=== PATIENT | female | born 2000 | race Caucasian/White ===

== ENCOUNTER 2021-08-13 08:06 | Outpatient (CLI) | payer OTHER, SELFPAY ==
--- NOTE | 2021-08-16 22:06 | WPDHOLTEREM ---
Holter/Event Monitor Holter/Event Monitor Date of procedure: 08/16/21 Holter/Event Procedure: 48 Hr Holter Monitor Diagnosis: Tachycardia Indications: Tachycardia Image/Tracing Quality: Good Finding: The patient was monitored for 48 hours. The underlying rhythm was sinus with a minimum heart rate of 51 beats per minute, average heart rate of 85 beats per minute and a maximum heart rate of 145 beats per minute. There were no PVCs. Twenty APCs were seen. There was no SVT, atrial fibrillation, ventricular tachycardia, heart block or pauses. The patient complained of chest pain at 3:39 p.m. on day 1 at which time she was in sinus tachycardia rate 115 beats per minute. No other symptoms were recorded. . Conclusion: 1. Unremarkable Holter monitor. Rare PACs noted. 2. The patient's symptom of chest pain correlated with sinus tachycardia.
== END 2021-08-13 08:07 | disposition home or self-care (01) ==
LOC: ANHCARD 08:08
PROVIDERS: PCP Physician Assistant
DX: R00.0 Tachycardia, unspecified (principal)
CPT/HCPCS: 93225; 93226